=== PATIENT | female | born 1935 | race American Indian/Alaskan Native ===

== ENCOUNTER 2018-11-07 17:07 | Emergency (ER) | payer MEDICARE ==
[2018-11-07] MEDS ORDERED: PEPCID IV ONE (17:25)
[2018-11-07] MEDS ORDERED: ZOFRAN IV ONE (17:25)
[2018-11-07] MEDS ORDERED: TYLENOL PO ONE (17:26)
--- NOTE | 2018-11-07 17:28 | Emergency Department Report ---
ED Abdominal Pain HPI - General Chief Complaint: Rectal Pain Stated Complaint: BLOOD IN URINE Time Seen by Provider: 11/07/18 17:18 Source: patient, EMS Mode of arrival: Stretcher Limitations: No Limitations - History of Present Illness Initial Comments: Mrs. Germain is a pleasant 82 year old female who presents from home via EMS for 4 months of hematuria and bright red blood per rectum. For several months she also has had diffuse abdominal pain radiating to bilateral lower back. She has subjective fever. Generalized malaise. Gradual onset of symptoms. MD Complaint: abdominal pain, flank pain -: Gradual, month(s) (several ) Location: diffuse Radiation: L flank, R flank, bilateral flank Severity: mild, moderate Quality: cramping, aching Consistency: constant Improves With: eating Worsens With: nothing Associated Symptoms: hematochezia, hematuria, other - Related Data Previous Rx's Medication Instructions Recorded Last Taken Type Acetaminophen [Mapap] 500 mg PO QID PRN #20 capsule 11/07/18 Unknown Rx Allergies Allergy/AdvReac Type Severity Reaction Status Date / Time Penicillins Allergy Unknown Verified 11/07/18 17:27 Sulfa (Sulfonamide Allergy Unknown Verified 11/07/18 17:27 Antibiotics) ED Review of Systems ROS: Stated complaint: BLOOD IN URINE Other details as noted in HPI Comment: All other systems reviewed and negative Constitutional: fever. 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 Absent: tenderness, meningismus - Respiratory Respiratory exam: Present: normal lung sounds bilaterally. Absent: respiratory distress, wheezes, rales, rhonchi - Cardiovascular Cardiovascular Exam: Present: regular rate, normal rhythm, normal heart sounds. Absent: systolic murmur, diastolic murmur, rubs, gallop - GI/Abdominal GI/Abdominal exam: Present: soft, normal bowel sounds. Absent: distended, tenderness, guarding, rebound - Extremities Exam Extremities exam: Present: normal inspection - Back Exam Back exam: Present: normal inspection - Neurological Exam Neurological exam: Present: alert, oriented X3 - Psychiatric Psychiatric exam: Present: normal affect, normal mood - Skin Skin exam: Present: warm, dry, intact, normal color. Absent: rash ED Course Vital Signs 11/07/18 11/07/18 11/07/18 17:26 18:53 18:54 Temperature 98.5 F Pulse Rate 72 70 Respiratory 16 19 16 Rate Blood Pressure Blood Pressure 154/55 164/51 [Left] O2 Sat by Pulse 98 96 98 Oximetry 11/07/18 11/07/18 11/07/18 19:00 19:16 19:30 Temperature Pulse Rate 69 70 67 Respiratory 15 15 22 Rate Blood Pressure 164/51 154/55 164/51 Blood Pressure [Left] O2 Sat by Pulse 96 95 96 Oximetry ED Medical Decision Making - Lab Data Result diagrams: 11/07/18 17:37 11/07/18 17:37 - Radiology Data Radiology results: report reviewed I have reviewed workup. CT abdomen and pelvis with ACUTE process findings colonic diverticulosis without diverticulitis no UTI no hydronephrosis noted urinary tract calculi there is multilevel degenerative changes in the lumbar spine. There is also degenerative arthrosis of the left hip CBC within normal limits with microcytic rbc's, CBC unremarkable urinalysis without hematuria or infection. Normal workup here in the ED with the exception of degenerative changes in the lumbar spine. And left hip Prescribed Tylenol for pain. Referred to primary physician. Critical care attestation.: If time is entered above; I have spent that time in minutes in the direct care of this critically ill patient, excluding procedure time. ED Disposition Clinical Impression: Lumbar degenerative disc disease, Osteoarthritis of left hip Disposition: TO HOME OR SELFCARE Is pt being admited?: No Does the pt Need Aspirin: No Condition: Stable Instructions: Osteoarthritis (ED), Acute Low Back Pain (ED), Back Pain (ED) Prescriptions: Acetaminophen [Mapap] 500 mg PO QID PRN #20 capsule PRN Reason: Pain , Severe (7-10) Referrals: PRIMARY CARE,MD [Referring] - 3-5 Days
[2018-11-07 18:10] LABS: Alanine Aminotransferase 19 units/L (7-56); Albumin 4.3 g/dL (3.9-5); BUN/Creatinine Ratio 28; Blood Urea Nitrogen 25 mg/dL (7-17); Calcium 9.9 mg/dL (8.4-10.2); Hemolysis Index 3
[2018-11-07 18:23] LABS: Bilirubin,Direct < 0.2 mg/dL (0-0.2)
--- NOTE | 2018-11-07 19:17 | Cat Scan Report ---
CT ABDOMEN AND PELVIS WITHOUT CONTRAST INDICATION: MAIN: GENERALIZED ABD PAIN RADIATING TO BACK. TECHNIQUE: Axial CT images were obtained through the abdomen and pelvis without IV contrast. All CT scans at [facility] location are performed using CT dose reduction for ALARA by means of automated exposure control. COMPARISON: None available. FINDINGS: LOWER CHEST: No significant abnormality. LIVER: No significant abnormality. GALLBLADDER: No significant abnormality. BILE DUCTS: No significant abnormality. PANCREAS: No significant abnormality. SPLEEN: No significant abnormality. ADRENALS: No significant abnormality. RIGHT KIDNEY and URETER: No significant abnormality. LEFT KIDNEY and URETER: No significant abnormality. STOMACH and SMALL BOWEL: No significant abnormality. COLON: Moderate colonic diverticulosis without diverticulitis APPENDIX: Normal PERITONEUM: No free fluid. No free air. No fluid collection. LYMPH NODES: No significant adenopathy. AORTA and ARTERIES: Extensive vascular calcifications nonaneurysmal abdominal aorta IVC and VEINS: No significant abnormality. URINARY BLADDER: No significant abnormality. REPRODUCTIVE ORGANS: No significant abnormality. ADDITIONAL FINDINGS: None. SKELETAL SYSTEM: Right hip arthroplasty. Diffuse osteopenia. Moderate degenerative changes left hip a nd moderately advanced degenerative changes lumbar spine. IMPRESSION: 1. Moderate colonic diverticulosis without diverticulitis. 2. No urinary tract calculi or hydronephrosis. 3. 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 Signer Name: Michael Corrigan MD Signed: 11/07/2018 7:13 PM Workstation Name: [id number]
[2018-11-07 19:36] LABS: Bilirubin,Urine NEG (Negative); Blood,Urine NEG (Negative); Color,Urine Straw (Yellow); Protein,Urine <15 mg/dL mg/dL (Negative); Urobilinogen,Urine < 2.0 mg/dL (<2.0)
[2018-11-07 19:51] LABS: Basophils # (Auto) 0.1 K/mm3 (0.0-0.1); Basophils % (Auto) 1.3 % (0.0-1.8); Eosinophils # (Auto) 0.3 K/mm3 (0.0-0.4); Hematocrit 34.7 % (30.3-42.9); Hemoglobin 11.1 gm/dl (10.1-14.3); Lymphocytes # (Auto) 1.9 K/mm3 (1.2-5.4); Lymphocytes % (Auto) 34.3 % (13.4-35.0); Mean Corpuscular HGB Conc 32 % (30-34); Mean Corpuscular Volume 75 fl (79-97); Monocytes # (Auto) 0.9 K/mm3 (0.0-0.8); Monocytes % (Auto) 15.6 % (0.0-7.3); Platelet Count 191 K/mm3 (140-440); Red Cell Distribution Width 14.7 % (13.2-15.2)
[2018-11-07 21:01] VITALS: BP 144/57
== END 2018-11-07 21:50 | disposition home or self-care (01) ==
LOC: ED 17:07
DX: M51.36 Other intervertebral disc degeneration, lumbar region (principal); M16.12 Unilateral primary osteoarthritis, left hip; I10 Essential (primary) hypertension; E11.9 Type 2 diabetes mellitus without complications; Z88.2 Allergy status to sulfonamides; Z88.0 Allergy status to penicillin; Z79.899 Other long term (current) drug therapy
CPT/HCPCS: 36415; 74176; 80048; 80076; 81001; 83690; 85025; 87076; 87086; 87186; 96374; 96375; 99285; J2405